=== PATIENT | male | born 1950 | race Caucasian/White ===

== ENCOUNTER 2018-07-29 17:07 | Emergency (ER) | payer MEDICARE, OTHER ==
--- NOTE | 2018-07-29 17:59 | ED ---
Back Pain - History of Current Complaint Chief Complaint: EDGeneral Stated Complaint: HIP PAIN/GEN. ILLNESS Time Seen by Provider: 07/29/18 17:25 Pain Intensity: 3 - Allergies/Home Medications Allergies/Adverse Reactions: Allergies Allergy/AdvReac Type Severity Reaction Status Date / Time No Known Allergies Allergy Verified 07/29/18 17:23 Home Medications: Home Medications Cholecalciferol TAB* [Vitamin D TAB*] 4,000 unit PO DAILY 07/29/18 [History Confirmed 07/29/18] Dextrose [Glucose] 16 gm PO ONCE PRN 07/29/18 [History Confirmed 07/29/18] Diclofenac Sodium EC TAB* [Voltaren EC TAB*] 75 mg PO BID 07/29/18 [History Confirmed 07/29/18] Insulin Aspart [Novolog Flexpen] 0 - 100 unit SUBCUT AC 07/29/18 [History Confirmed 07/29/18] Insulin GLARGINE(*) [Lantus(*)] 50 units SUBCUT DAILY 07/29/18 [History Confirmed 07/29/18] Levothyroxine TAB* [Synthroid TAB*] 25 mcg PO QAM 07/29/18 [History Confirmed ] Metoprolol Succinate XL TAB* [Toprol XL TAB*] 25 mg PO QAM 07/29/18 [History Confirmed 07/29/18] Mirtazapine TAB* [Remeron TAB*] 30 mg PO DAILY 07/29/18 [History Confirmed 07/29] Primidone TAB(*) [Mysoline TAB(*)] 100 mg PO BEDTIME 07/29/18 [History Confirmed 07/29/18] Rosuvastatin (NF) [Crestor (NF)] 40 mg PO BEDTIME 07/29/18 [History Confirmed ] Sertraline* [Zoloft*] 150 mg PO DAILY 07/29/18 [History Confirmed 07/29/18] Sildenafil (NF) [Viagra (NF)] 100 mg PO ONCE PRN 07/29/18 [History Confirmed 11/15] Tamsulosin CAP* [Flomax CAP*] 0.4 mg PO DAILY 07/29/18 [History Confirmed ] Zolpidem TAB* [Ambien TAB*] 10 mg PO BEDTIME PRN 07/29/18 [History Confirmed 11/15] PMH/Surg Hx/FS Hx/Imm Hx Infectious Disease History: No Infectious Disease History: Denies: Traveled Outside the [place] in Last 30 Days - Social History Alcohol Use: Occasionally Substance Use Type: Reports: None Smoking Status (MU): Former Smoker Physical Exam Vital Signs On Initial Exam: Initial Vitals Temp Pulse Resp BP Pulse Ox 100.1 F 82 18 130/70 99 07/29/18 17:20 07/29/18 17:20 07/29/18 17:20 07/29/18 17:20 07/29/18 17:20 Diagnostics - Vital Signs Vital Signs Temp Pulse Resp BP Pulse Ox 07/29/18 17:20 100.1 F 82 18 130/70 99 - Laboratory Lab Statement: Any lab studies that have been ordered have been reviewed, and results considered in the medical decision making process. Discharge - Discharge Plan Referrals: No Primary Care Phys,NOPCP [Primary Care Provider] - - Attestation Statements Document Initiated by Scribe: Yes
--- NOTE | 2018-07-29 18:10 | ED ---
Complex/Multi-Sys Presentation - HPI Summary HPI Summary: The pt is 68 y/o diabetic male [facility] c/o diffuse back pain and R hip pain since 2 days ago worsened today. The pain started after he carried heavy items down a staircase. The pain rated 4/10 in intensity is aggravated by, movement, lying on his side and lifting objects. He notes fever, chills, SOB, dyspnea (lasting weeks) but denies dysuria. As per the nurses notes, the pt had N/V/D for the last 2 days but not today. - History Of Current Complaint Chief Complaint: EDGeneral Time Seen by Provider: 07/29/18 17:25 Hx Obtained From: Patient, Family/Development Mgr - Sister Onset/Duration: Lasting Days, Still Present, Worse Since - Today Timing: Constant Location: Pain At: - R hip , diffuse back - Allergies/Home Medications Allergies/Adverse Reactions: Allergies Allergy/AdvReac Type Severity Reaction Status Date / Time No Known Allergies Allergy Verified 07/29/18 17:23 Home Medications: Home Medications Cholecalciferol TAB* [Vitamin D TAB*] 4,000 unit PO DAILY 07/29/18 [History Confirmed 07/29/18] Dextrose [Glucose] 16 gm PO ONCE PRN 07/29/18 [History Confirmed 07/29/18] Diclofenac Sodium EC TAB* [Voltaren EC TAB*] 75 mg PO BID 07/29/18 [History Confirmed 07/29/18] Insulin Aspart [Novolog Flexpen] 0 - 100 unit SUBCUT AC 07/29/18 [History Confirmed 07/29/18] Insulin GLARGINE(*) [Lantus(*)] 50 units SUBCUT DAILY 07/29/18 [History Confirmed 07/29/18] Levothyroxine TAB* [Synthroid TAB*] 25 mcg PO QAM 07/29/18 [History Confirmed ] Metoprolol Succinate XL TAB* [Toprol XL TAB*] 25 mg PO QAM 07/29/18 [History Confirmed 07/29/18] Mirtazapine TAB* [Remeron TAB*] 30 mg PO DAILY 07/29/18 [History Confirmed 07/29] Primidone TAB(*) [Mysoline TAB(*)] 100 mg PO BEDTIME 07/29/18 [History Confirmed 07/29/18] Rosuvastatin (NF) [Crestor (NF)] 40 mg PO BEDTIME 07/29/18 [History Confirmed ] Sertraline* [Zoloft*] 150 mg PO DAILY 07/29/18 [History Confirmed 07/29/18] Sildenafil (NF) [Viagra (NF)] 100 mg PO ONCE PRN 07/29/18 [History Confirmed 11/15] Tamsulosin CAP* [Flomax CAP*] 0.4 mg PO DAILY 07/29/18 [History Confirmed ] Zolpidem TAB* [Ambien TAB*] 10 mg PO BEDTIME PRN 07/29/18 [History Confirmed 11/15] PMH/Surg Hx/FS Hx/Imm Hx Previously Healthy: No Endocrine/Hematology History: Reports: Hx Diabetes - Type II Cardiovascular History: Reports: Hx Hypertension Sensory History: Denies: Hx Deafness Neurological History: Reports: Other Neuro Impairments/Disorders - Tremors ( medicated) Psychiatric History: Reports: Hx Depression Infectious Disease History: No Infectious Disease History: Denies: Traveled Outside the [place] in Last 30 Days - Family History Known Family History: Positive: Cardiac Disease - Mother , Diabetes - Gestational diabetes- sisters - Social History Occupation: Employed Full-time Lives: With Family Alcohol Use: Occasionally Substance Use Type: Reports: None Smoking Status (MU): Former Smoker Review of Systems Positive: Fever, Chills Positive: Shortness Of Breath, Other - Positive: Dyspnea Positive: Vomiting - 2 days ago-resolved today , Diarrhea - 2 days ago-resolved today , Nausea - 2 days ago-resolved today Negative: dysuria Positive: Other - Positive: R hip pain, Diffuse back pain All Other Systems Reviewed And Are Negative: Yes Physical Exam - Summary Physical Exam Summary: Appearance: The patient is well-nourished in no acute distress and in no acute pain. Skin: The skin is warm and dry and skin color reflects adequate perfusion. HEENT: The head is normocephalic and atraumatic. The pupils are equal and reactive. The conjunctivae are clear and without drainage. Nares are patent and without drainage. Mouth reveals moist mucous membranes and the throat is without erythema and exudate. The external ears are intact. The ear canals are patent and without drainage. The tympanic membranes are intact. Neck: The neck is supple with full range of motion and non-tender. There are no carotid bruits. There is no neck vein distension. Respiratory: Chest is non-tender. Lungs are clear to auscultation and breath sounds are symmetrical and equal. Cardiovascular: Heart is regular rate and rhythm. There is no murmur or rub auscultated. There is no peripheral edema and pulses are symmetrical and equal. Abdomen: The diffuse abdomen is soft and tender. There are normal bowel sounds heard in all four quadrants and there is no organomegaly palpated. Musculoskeletal: Tenderness of the R sciatica and R para-lumbar region. Extremities are non-tender with full range of motion. There is good capillary refill. There is no peripheral edema or calf tenderness elicited. Neurological: Patient is alert and oriented to person, place and time. The patient has symmetrical motor strength in all four extremities. Cranial nerves are grossly intact. Deep tendon reflexes are symmetrical and equal in all four extremities. Triage Information Reviewed: Yes Vital Signs On Initial Exam: Initial Vitals Temp Pulse Resp BP Pulse Ox 100.1 F 82 18 130/70 99 07/29/18 17:20 07/29/18 17:20 07/29/18 17:20 07/29/18 17:20 07/29/18 17:20 Vital Signs Reviewed: Yes Diagnostics - Vital Signs Vital Signs Temp Pulse Resp BP Pulse Ox 07/29/18 18:00 84 19 96 07/29/18 17:57 80 22 98 07/29/18 17:20 100.1 F 82 18 130/70 99 - Laboratory Result Diagrams: 07/29/18 18:29 07/29/18 18:29 Lab Statement: Any lab studies that have been ordered have been reviewed, and results considered in the medical decision making process. - Radiology CXR Radiology Interpretation Completed By: Radiologist - IMPRESSION: LOW LUNG VOLUMES, SMALL RIGHT BASILAR INFILTRATE. The ED physician reviewed this radiology report. - CT Abd/Pel CT CT Interpretation Completed By: Radiologist - IMPRESSION:No CT findings to correlate with patient's symptomatology. Specifically no obstructing renal or ureteral calculi. The ED physician reviewed this radiology report. Lumbar spine CT CT Interpretation Completed By: Radiologist - IMPRESSION:IMPRESSION: Mild multilevel lumbar spondylopathy. The ED physician reviewed this radiology report. Complex Multi-Symp Course/Dx Course Of Treatment: Mr. Cori presented with bilateral back pain worse on the right including pain down the right leg. He been having pain for several days. He clearly had a sciatic pain on exam however he also complained of abdominal pain and was mildly tender in the abdomen therefore labs were obtained. This CT shows only DJD in his back and no obstructing stones etc. He does have a UTI and will be treated with pain medication and antibiotics. - Diagnoses Provider Diagnoses: UTI (urinary tract infection), Sciatica Discharge - Sign-Out/Discharge Documenting (check all that apply): Patient Departure - DC - Discharge Plan Condition: Improved Disposition: HOME Prescriptions: Ciprofloxacin TAB* [Cipro Tab*] 500 mg PO BID #20 tab HYDROcodone/ACETAMIN 5-325 MG* [[place] 5-325 TAB*] 1 tab PO Q6H PRN #20 tab MDD 4 PRN Reason: Pain Patient Education Materials: Urinary Tract Infection in Men (ED), Sciatica (ED) Referrals: No Primary Care Phys,NOPCP [Primary Care Provider] - [facility] [Outside] Additional Instructions: Return to ED for any new or worsening symptoms - Billing Disposition and Condition Condition: IMPROVED Disposition: Home - Attestation Statements Document Initiated by Scribe: Yes Documenting Scribe: Carla Gandhi Provider For Whom Scribe is Documenting (Include Credential): Dr. Glynn Urrutia MD Scribe Attestation: Carla Perales scribed for Dr. Glynn Urrutia MD on 07/29/18 at 2159. Scribe Documentation Reviewed: Yes Provider Attestation: The documentation as recorded by the mingibCarla méndez accurately reflects the service I personally performed and the decisions made by , Dr. Glynn Urrutia MD
--- NOTE | 2018-07-29 18:36 | RAD ---
INDICATION: Weakness. COMPARISON: Correlation is made with a prior chest x-ray study from November 22, 2003. TECHNIQUE: A portable view of the chest was obtained. FINDINGS: The patient is status post sternotomy. The heart is within normal limits in size. The lungs are underinflated. There is a small infiltrate at the medial right lung base. IMPRESSION: LOW LUNG VOLUMES, SMALL RIGHT BASILAR INFILTRATE.
[2018-07-29 18:40] LABS: Hematocrit 41 % (42-52); Hemoglobin 14.1 g/dl (14.0-18.0); Mean Corpuscular HGB Conc 35 g/dl (31-36); Mean Corpuscular Hemoglobin 29 pg (27-31); Mean Corpuscular Volume 84 fL (80-94); Mean Platelet Volume 8.4 um3 (7.4-10.4); Platelet Count 188 10^3/ul (150-450); Red Blood Count 4.83 10^6/ul (4.00-5.40); Red Cell Distribution Width 14 % (10.5-15); White Blood Count 8.5 10^3/ul (3.5-10.8)
[2018-07-29 18:56] LABS: ABS Basophils 0 10^3/ul (0-0.2); ABS Eosinophils 0.1 10^3/ul (0-0.6); ABS Lymphocytes 0.5 10^3/ul (1.0-4.8); ABS Monocytes 0.7 10^3/ul (0-0.8); ABS Neutrophils 7.2 10^3/ul (1.5-7.7); ABS Nucleated RBC 0 10^3/ul; Eosinophil % 1.6 % (0-6); Lymphocyte % 5.5 % (25-47); Nucleated Red Blood Cells % 0.4
[2018-07-29 19:01] LABS: EGFR Non-African American 46.8 (>60)
[2018-07-29] MEDS ORDERED: HYDROmorphone INJ* 1 MG/ML CARPUJECT SYRINGE IV ONE (19:25)
[2018-07-29] MEDS ORDERED: Ondansetron INJ* 2 MG/ML VIAL IV ONE (19:25)
[2018-07-29] MEDS ORDERED: HYDROmorphone INJ1* 1 MG/ML SYRINGE ONE (19:29)
--- NOTE | 2018-07-29 19:44 | RAD ---
EXAM: CT Lumbar Spine Without Intravenous Contrast CLINICAL HISTORY: 68 years old, male; Pain; Low back pain TECHNIQUE: Axial computed tomography images of the lumbar spine without intravenous contrast. All CT scans at this facility use at least one of these dose optimization techniques: automated exposure control; mA and/or kV adjustment per patient size (includes targeted exams where dose is matched to clinical indication); or iterative reconstruction. Coronal and sagittal reformatted images were created and reviewed. COMPARISON: No relevant prior studies available. FINDINGS: Vertebrae: Normal lumbar lordosis without spondylolisthesis. Vertebral body heights are maintained. No fractures. Discs/spinal canal/neural foramina: L1-L2: No disc bulge or canal stenosis.The facet joints demonstrate mild degenerative hypertrophy and sclerosis. No neural foraminal narrowing. L2-L3: No disc bulge or canal stenosis.The facet joints demonstrate moderate degenerative narrowing and sclerosis. The facet joints are normal. L3-L4: Mild disc height loss with endplate osteophyte disc bulge complex causing no canal stenosis.The facet joints demonstrate mild degenerative hypertrophy and sclerosis. Mild neural foraminal narrowing. L4-L5: Symmetric disc bulge causing no canal stenosis.The facet joints demonstrate mild degenerative hypertrophy and sclerosis. Moderate severe right and moderate left neural foraminal narrowing. L5-S1: Mild disc bulge without canal stenosis.The facet joints demonstrate moderate degenerative narrowing and sclerosis. Mild neural foraminal narrowing. Soft tissues: Normal. No hernias. IMPRESSION: Mild multilevel lumbar spondylopathy.
[2018-07-29 19:53] LABS: Urine Appearance Cloudy; Urine Blood Negative (Negative); Urine Color Amber; Urine Ketones Trace (Negative); Urine Protein 2+(100 mg/dL) (Negative); Urine Red Blood Cell Trace(0-2/hpf) (Absent); Urine Specific Gravity 1.032 (1.010-1.030); Urine Urobilinogen Positive (Negative); Urine White Blood Cell 3+(>20/hpf) (Absent)
--- NOTE | 2018-07-29 21:09 | RAD ---
EXAM: CT Abdomen and Pelvis Without Intravenous Contrast CLINICAL HISTORY: 68 years old, male; Pain; Abdominal pain; Flank; Right; Additional info: Right flank pain TECHNIQUE: Axial computed tomography images of the abdomen and pelvis without intravenous contrast. All CT scans at this facility use at least one of these dose optimization techniques: automated exposure control; mA and/or kV adjustment per patient size (includes targeted exams where dose is matched to clinical indication); or iterative reconstruction. Coronal and sagittal reformatted images were created and reviewed. COMPARISON: No relevant prior studies available. FINDINGS: Lung bases: The visualized portions of the lung bases are normal. ABDOMEN: Liver: Normal. Normal size. No masses. Gallbladder and bile ducts: Surgically absent gallbladder. Pancreas: Normal. No ductal dilation. Spleen: Normal. No splenomegaly. Adrenals: Normal. No mass. Kidneys and ureters: No renal solid cortical lesions, calculi, or pelvocaliectasis. Stomach and bowel: Incompletely distended grossly normal stomach. Normal caliber small bowel. No colonic masses or segmental wall thickening. PELVIS: Appendix: Normal caliber appendix without wall thickening or adjacent inflammation. Bladder: The bladder is decompressed but otherwise normal. No stones. Reproductive: Mild prostate enlargement. Normal seminal vesicles. ABDOMEN and PELVIS: Intraperitoneal space: Normal. No pneumoperitoneum. No ascities. Bones/joints: The spine demonstrates mild degenerative changes at multiple levels. Mild bilateral hip primary osteoarthritis. No fractures. No suspicious bone lesions. Soft tissues: Subcutaneous soft tissue focus right lower quadrant measures 2.5 cm with no adjacent stranding likely a sebaceous cyst. No hernias. Vasculature: There is moderate atherosclerotic calcification of the coronary arteries. The aorta demonstrates mild atherosclerotic calcification. No abdominal aortic aneurysm. Lymph nodes: Normal. No enlarged lymph nodes. IMPRESSION: No CT findings to correlate with patient's symptomatology. Specifically no obstructing renal or ureteral calculi.
[2018-07-29] MEDS ORDERED: Ciprofloxacin TAB* 500 MG PO ONE (21:39)
[2018-07-29] MEDS ORDERED: HYDROcodone/ACETAMIN 5-325 MG* 1 TAB PO ONE (21:39)
[2018-07-29 22:07] VITALS: BP 114/72
== END 2018-07-29 22:11 | disposition home or self-care (01) ==
LOC: ED 17:07
DX: N39.0 Urinary tract infection, site not specified (principal); M54.30 Sciatica, unspecified side; R06.02 Shortness of breath; Z87.891 Personal history of nicotine dependence; E11.9 Type 2 diabetes mellitus without complications
CPT/HCPCS: 36415; 71045; 72131; 74176; 80053; 81003; 81015; 83690; 83880; 85025; 86140; 87086; 96374; 96375; 99284; A9270-GY; J1170; J2405